=== PATIENT | female | born 1975 | race Caucasian/White ===

== ENCOUNTER 2016-03-23 03:03 | Emergency (ER) | payer MEDICAID | END 2016-03-23 04:45 | disposition home or self-care (01) | LOC: D.ER 03:03 | DX: S00.83XA Contusion of other part of head, initial encounter (principal); S10.93XA Contusion of unspecified part of neck, initial encounter; Y04.2XXA Assault by strike against or bumped into by another person, initial encounter; Y93.89 Activity, other specified; Y92.019 Unspecified place in single-family (private) house as the place of occurrence of the external cause ==

== ENCOUNTER 2016-03-29 23:49 | Emergency (ER) | payer MEDICAID | END 2016-03-30 01:00 | disposition home or self-care (01) | LOC: D.ER 23:49 | DX: S00.83XA Contusion of other part of head, initial encounter (principal); S80.11XA Contusion of right lower leg, initial encounter; S30.0XXA Contusion of lower back and pelvis, initial encounter; S30.1XXA Contusion of abdominal wall, initial encounter; Y04.2XXA Assault by strike against or bumped into by another person, initial encounter; Y93.89 Activity, other specified; Y92.89 Other specified places as the place of occurrence of the external cause; G43.909 Migraine, unspecified, not intractable, without status migrainosus; F17.200 Nicotine dependence, unspecified, uncomplicated ==

== ENCOUNTER 2016-05-02 07:41 | Emergency (ER) | payer MEDICAID | END 2016-05-02 09:11 | disposition home or self-care (01) | LOC: D.ER 07:41 | DX: G43.909 Migraine, unspecified, not intractable, without status migrainosus (principal) ==

== ENCOUNTER 2016-10-24 11:39 | Emergency (ER) | payer MEDICAID | END 2016-10-24 13:02 | disposition home or self-care (01) | LOC: D.ER 11:39 | DX: J20.9 Acute bronchitis, unspecified (principal) ==

== ENCOUNTER 2016-12-26 18:36 | Emergency (ER) | payer MEDICAID ==
[2016-12-26 19:04] LABS: BASOPHILS 0.3 % (0-2); EOSINOPHILS 6.6 % (0-7); HEMATOCRIT 35.1 % (36.0-48.0); HEMOGLOBIN 12.5 g/dL (12-16); IMMATURE GRANULOCYTES 0.1 % (0-5); LYMPHOCYTES 43.3 % (15-50); MCH 32.2 pg (26.0-34.0); MCHC 35.6 g/dL (31.0-37.0); MCV 90.5 fL (80.0-100.0); MEAN PLATELET VOLUME 9.1 fL (7.4-10.4); MONOCYTES 7.2 % (2-11); NEUTROPHILS 42.5 % (40-80); PLATELET COUNT 327 10x3/uL (130-400); RBC 3.88 10x6/uL (4.00-5.40); RDW 13.1 % (11.5-14.5); WBC 7.6 10x3/uL (4.8-10.8)
[2016-12-26 19:22] LABS: ALBUMIN 3.4 g/dL (3.4-5.0); ALKALINE PHOSPHATASE 82 U/L (46-116); ALT (SGPT) 22 U/L (10-68); BILIRUBIN - TOTAL 0.15 mg/dL (0.2-1.3); CALC OSMOLALITY 286 mosm/kg (275-300); CALCIUM 8.5 mg/dL (8.5-10.1); CARBON DIOXIDE 23.5 mmol/L (21.0-32.0); CHLORIDE - SERUM 109 mmol/L (98-107); CREATININE - SERUM 0.9 mg/dL (0.6-1.3); GLUCOSE 116 mg/dL (74-106); POTASSIUM - SERUM 4.2 mmol/L (3.5-5.1); PROTEIN - SERUM 6.8 g/dL (6.4-8.2); SODIUM 143 mmol/L (136-145); UREA NITROGEN 15 mg/dL (7-18); eGFR NON AFRICAN AMERICAN 73 mL/min (90-120)
[2016-12-26 19:28] LABS: CKMB 1.6 U/L (0.0-3.6); CREATINE KINASE 118 UL (21-215); TROPONIN-I < 0.017 ng/mL (0.000-0.060)
== END 2016-12-26 21:07 | disposition home or self-care (01) ==
LOC: D.ER 18:36
PROVIDERS: Emergency Medicine
DX: F41.9 Anxiety disorder, unspecified (principal); K21.9 Gastro-esophageal reflux disease without esophagitis

== ENCOUNTER 2017-01-20 15:09 | Emergency (ER) | payer MEDICAID | END 2017-01-20 16:11 | disposition home or self-care (01) | LOC: D.ER 15:09 | DX: T24.001A Burn of unspecified degree of unspecified site of right lower limb, except ankle and foot, initial encounter (principal); X18.XXXA Contact with other hot metals, initial encounter; Y93.89 Activity, other specified; Y92.89 Other specified places as the place of occurrence of the external cause; K21.9 Gastro-esophageal reflux disease without esophagitis ==

== ENCOUNTER 2017-01-24 12:51 | Emergency (ER) | payer MEDICAID | END 2017-01-24 13:37 | disposition home or self-care (01) | LOC: D.ER 12:51 | DX: T24.001D Burn of unspecified degree of unspecified site of right lower limb, except ankle and foot, subsequent encounter (principal); X08.8XXD Exposure to other specified smoke, fire and flames, subsequent encounter; K21.9 Gastro-esophageal reflux disease without esophagitis ==

== ENCOUNTER 2017-03-12 12:45 | Emergency (ER) | payer MEDICAID | END 2017-03-12 14:40 | disposition home or self-care (01) | LOC: D.ER 12:45 | DX: M25.50 Pain in unspecified joint (principal); S29.011A Strain of muscle and tendon of front wall of thorax, initial encounter; X58.XXXA Exposure to other specified factors, initial encounter; Y93.89 Activity, other specified; Y92.89 Other specified places as the place of occurrence of the external cause; M19.91 Primary osteoarthritis, unspecified site; R07.9 Chest pain, unspecified; F17.200 Nicotine dependence, unspecified, uncomplicated ==

== ENCOUNTER 2017-03-22 11:51 | Emergency (ER) | payer MEDICAID | END 2017-03-22 13:42 | disposition home or self-care (01) | LOC: D.ER 11:51 | DX: J06.9 Acute upper respiratory infection, unspecified (principal); K21.9 Gastro-esophageal reflux disease without esophagitis ==

== ENCOUNTER 2017-03-29 19:51 | Emergency (ER) | payer MEDICAID | END 2017-03-29 20:58 | disposition home or self-care (01) | LOC: D.ER 19:51 | DX: J11.1 Influenza due to unidentified influenza virus with other respiratory manifestations (principal) ==

== ENCOUNTER 2017-03-30 09:56 | Emergency (ER) | payer MEDICAID ==
[2017-03-30 11:37] LABS: BASOPHILS 0.4 % (0-2); EOSINOPHILS 8.4 % (0-7); HEMATOCRIT 38.7 % (36.0-48.0); HEMOGLOBIN 13.4 g/dL (12-16); LYMPHOCYTES 34.5 % (15-50); MCH 31.6 pg (26.0-34.0); MCHC 34.6 g/dL (31.0-37.0); MCV 91.3 fL (80.0-100.0); MEAN PLATELET VOLUME 9.2 fL (7.4-10.4); MONOCYTES 6.9 % (2-11); NEUTROPHILS 49.8 % (40-80); PLATELET COUNT 283 10x3/uL (130-400); RBC 4.24 10x6/uL (4.00-5.40); RDW 13.5 % (11.5-14.5); WBC 5.2 10x3/uL (4.8-10.8)
[2017-03-30 11:52] LABS: ALBUMIN 3.5 g/dL (3.4-5.0); ANION GAP 12.4 mmol/L (8-16); BILIRUBIN - TOTAL 0.16 mg/dL (0.2-1.3); CARBON DIOXIDE 27.6 mmol/L (21.0-32.0); CREATININE - SERUM 1.1 mg/dL (0.6-1.3)
== END 2017-03-30 12:48 | disposition home or self-care (01) ==
LOC: D.ER 09:56
PROVIDERS: Physician Assistant
DX: J11.1 Influenza due to unidentified influenza virus with other respiratory manifestations (principal); J20.9 Acute bronchitis, unspecified; R09.89 Other specified symptoms and signs involving the circulatory and respiratory systems; R50.9 Fever, unspecified; M79.1 Myalgia; J02.9 Acute pharyngitis, unspecified; R06.2 Wheezing; F17.200 Nicotine dependence, unspecified, uncomplicated

== ENCOUNTER 2017-03-31 20:56 | Emergency (ER) | payer MEDICAID | END 2017-03-31 22:55 | disposition home or self-care (01) | LOC: D.ER 20:56 | DX: B34.9 Viral infection, unspecified (principal); F17.200 Nicotine dependence, unspecified, uncomplicated ==

== ENCOUNTER 2017-04-15 10:46 | Emergency (ER) | payer MEDICAID | END 2017-04-15 12:44 | disposition home or self-care (01) | LOC: D.ER 10:46 | DX: S93.401A Sprain of unspecified ligament of right ankle, initial encounter (principal); X50.1XXA Overexertion from prolonged static or awkward postures, initial encounter; Y93.9 Activity, unspecified; Y92.019 Unspecified place in single-family (private) house as the place of occurrence of the external cause ==

== ENCOUNTER 2017-09-03 12:55 | Emergency (ER) | payer MEDICAID ==
[~2017-09-03] VITALS: Ht 149.9 cm; Wt 58.2 kg
[2017-09-03 13:07] VITALS: Ht 149.9 cm; Wt 58.2 kg
[2017-09-03] MEDS ORDERED: NEURONTIN 300300 MG PO (13:09)
[2017-09-03] MEDS ORDERED: PRINIVIL20 MG PO (13:10)
[2017-09-03] MEDS ORDERED: ZOCOR20 MG PO (13:10)
[2017-09-03] MEDS ORDERED: TYLENOL W/CODEI1 TAB PO (15:41)
[2017-09-03] MEDS ORDERED: ZOFRAN ODT4 MG/UDTAB PO (15:41)
[2017-09-03 16:10] VITALS: BP 121/76
== END 2017-09-03 16:10 | disposition home or self-care (01) ==
LOC: D.ER 12:55
DX: G43.909 Migraine, unspecified, not intractable, without status migrainosus (principal); R11.0 Nausea; J02.9 Acute pharyngitis, unspecified; I10 Essential (primary) hypertension; K21.9 Gastro-esophageal reflux disease without esophagitis

== ENCOUNTER 2017-09-20 20:56 | Emergency (ER) | payer MEDICAID ==
[~2017-09-20] VITALS: Ht 149.9 cm; Wt 56.2 kg
[~2017-09-20 20:56] MED LIST: NEURONTIN 300300 MG PO; PRINIVIL20 MG PO; TYLENOL W/CODEI1 TAB PO; ZOCOR20 MG PO; ZOFRAN ODT4 MG/UDTAB PO
[2017-09-20 21:28] VITALS: Ht 149.9 cm; Wt 56.2 kg
[2017-09-21] MEDS ORDERED: TORADOL10 MG PO (00:39)
[2017-09-21 00:48] VITALS: BP 102/73
== END 2017-09-21 00:49 | disposition home or self-care (01) ==
LOC: D.ER 20:56
DX: D49.89 Neoplasm of unspecified behavior of other specified sites (principal); I10 Essential (primary) hypertension; F17.200 Nicotine dependence, unspecified, uncomplicated

== ENCOUNTER 2017-09-24 19:36 | Emergency (ER) | payer MEDICAID ==
[~2017-09-24] VITALS: Ht 149.9 cm; Wt 56.4 kg
[~2017-09-24 19:36] MED LIST changes: +TORADOL10 MG PO
[2017-09-24 19:42] VITALS: Ht 149.9 cm; Wt 56.4 kg
[2017-09-24] MEDS ORDERED: ZOFRAN ODT4 MG/UDTAB PO (21:01)
[2017-09-24 21:46] VITALS: BP 111/78
== END 2017-09-24 21:46 | disposition home or self-care (01) ==
LOC: D.ER 19:36
DX: R59.0 Localized enlarged lymph nodes (principal); F41.9 Anxiety disorder, unspecified; I10 Essential (primary) hypertension

== ENCOUNTER 2018-01-19 13:50 | Emergency (ER) | payer MEDICAID ==
[~2018-01-19] VITALS: Ht 149.9 cm; Wt 59.0 kg
[2018-01-19 14:00] VITALS: Ht 149.9 cm; Wt 59.0 kg
[2018-01-19] MEDS ORDERED: SUMATRIPTAN SUC25 MG PO (17:07)
[2018-01-19 17:43] VITALS: BP 128/84
== END 2018-01-19 17:44 | disposition other institution (70) ==
LOC: D.ER 13:50
DX: G43.909 Migraine, unspecified, not intractable, without status migrainosus (principal); I10 Essential (primary) hypertension

== ENCOUNTER 2018-03-04 10:45 | Emergency (ER) | payer MEDICAID ==
[~2018-03-04] VITALS: Ht 149.9 cm; Wt 65.0 kg
[~2018-03-04 10:45] MED LIST changes: +SUMATRIPTAN SUC25 MG PO
[2018-03-04 11:03] VITALS: Ht 149.9 cm; Wt 65.0 kg
[2018-03-04] MEDS ORDERED: VISTARIL50 MG PO (11:05)
[2018-03-04] MEDS ORDERED: TEMAZEPAM30 MG PO (11:06)
[2018-03-04] MEDS ORDERED: PHENERGAN DM SYR5 ML PO (14:13)
[2018-03-04] MEDS ORDERED: VIBRAMYCIN 100100 MG PO (14:14)
[2018-03-04 14:51] VITALS: BP 124/77
== END 2018-03-04 14:51 | disposition home or self-care (01) ==
LOC: D.ER 10:45
DX: J06.9 Acute upper respiratory infection, unspecified (principal); R05 Cough; R11.0 Nausea; R19.7 Diarrhea, unspecified; M79.18 Myalgia, other site; R09.89 Other specified symptoms and signs involving the circulatory and respiratory systems; I10 Essential (primary) hypertension

== ENCOUNTER 2018-05-19 22:53 | Emergency (ER) | payer MEDICAID ==
[2018-03-04 11:03] VITALS: Ht 149.9 cm; Wt 56.4 kg
[~2018-05-19] VITALS: Ht 149.9 cm; Wt 56.4 kg
[~2018-05-19 22:53] MED LIST changes: +PHENERGAN DM SYR5 ML PO; +TEMAZEPAM30 MG PO; +VIBRAMYCIN 100100 MG PO; +VISTARIL50 MG PO
[2018-05-19 23:01] VITALS: BP 132/81
[2018-05-19] MEDS ORDERED: LISINOPRIL20 MG PO (23:03)
== END 2018-05-20 00:26 | disposition home or self-care (01) ==
LOC: D.ER 22:53
DX: R51 Headache (principal)

== ENCOUNTER 2018-06-08 02:13 | Emergency (ER) | payer MEDICAID ==
[~2018-06-08] VITALS: Ht 149.9 cm; Wt 59.1 kg
[~2018-06-08 02:13] MED LIST changes: +LISINOPRIL20 MG PO
[2018-06-08 02:15] VITALS: Ht 149.9 cm; Wt 59.1 kg
[2018-06-08] MEDS ORDERED: TYLENOL W/CODEI1 TAB PO (02:21)
[2018-06-08 04:01] VITALS: BP 128/89
== END 2018-06-08 04:02 | disposition home or self-care (01) ==
LOC: D.ER 02:13
DX: S01.81XA Laceration without foreign body of other part of head, initial encounter (principal); I10 Essential (primary) hypertension; Y04.8XXA Assault by other bodily force, initial encounter

== ENCOUNTER 2018-06-15 09:05 | Emergency (ER) | payer MEDICAID ==
[~2018-06-15] VITALS: Ht 149.9 cm; Wt 65.9 kg
[2018-06-15 09:08] VITALS: Ht 149.9 cm; Wt 65.9 kg
[2018-06-15 09:43] LABS: APPEARANCE CLEAR (CLEAR); BILIRUBIN NEGATIVE (NEGATIVE); COLOR YELLOW (YELLOW); GLUCOSE NEGATIVE (NEGATIVE); KETONE NEGATIVE (NEGATIVE); NITRITE NEGATIVE (NEGATIVE); PROTEIN NEGATIVE (NEGATIVE); UROBILINOGEN NORMAL (NORMAL)
[2018-06-15 09:53] LABS: BASOPHILS 0.3 % (0-2); EOSINOPHILS 3.3 % (0-7); HEMATOCRIT 38.1 % (36.0-48.0); HEMOGLOBIN 13.7 g/dL (12-16); IMMATURE GRANULOCYTES 0.3 % (0-5); LYMPHOCYTES 26.7 % (15-50); MCH 31.7 pg (26.0-34.0); MCV 88.2 fL (80.0-100.0); MEAN PLATELET VOLUME 9.1 fL (7.4-10.4); MONOCYTES 5.6 % (2-11); NEUTROPHILS 63.8 % (40-80); RBC 4.32 10x6/uL (4.00-5.40); RDW 12.6 % (11.5-14.5); WBC 7.7 10x3/uL (4.8-10.8)
[2018-06-15 09:56] LABS: PLATELET COUNT 345 10x3/uL (130-400)
[2018-06-15 09:58] LABS: UDS - AMPHET POSITIVE QUAL (NEGATIVE); UDS - BARB NEGATIVE QUAL (NEGATIVE); UDS - BENZO NEGATIVE QUAL (NEGATIVE); UDS - COCAINE NEGATIVE QUAL (NEGATIVE); UDS - OPIATE NEGATIVE QUAL (NEGATIVE); UDS - PCP NEGATIVE QUAL (NEGATIVE); UDS - THC POSITIVE QUAL (NEGATIVE)
[2018-06-15 10:01] LABS: ALBUMIN 3.8 g/dL (3.4-5.0); ALKALINE PHOSPHATASE 104 U/L (46-116); ALT (SGPT) 23 U/L (10-68); BILIRUBIN - TOTAL 0.21 mg/dL (0.2-1.3); CALC OSMOLALITY 280 mosm/kg (275-300); CALCIUM 9.1 mg/dL (8.5-10.1); CARBON DIOXIDE 27.2 mmol/L (21.0-32.0); CHLORIDE - SERUM 104 mmol/L (98-107); GLUCOSE 93 mg/dL (74-106); POTASSIUM - SERUM 4.5 mmol/L (3.5-5.1); PROTEIN - SERUM 7.8 g/dL (6.4-8.2); SODIUM 139 mmol/L (136-145); UREA NITROGEN 20 mg/dL (7-18); eGFR NON AFRICAN AMERICAN 64 mL/min (90-120)
[2018-06-15 10:08] LABS: CKMB 0.9 U/L (0.0-3.6); CREATINE KINASE 83 UL (21-215); MAGNESIUM - SERUM 1.8 mg/dL (1.8-2.4)
[2018-06-15 10:10] LABS: TROPONIN-I < 0.017 ng/mL (0.000-0.060)
[2018-06-15] MEDS ORDERED: ZOFRAN4 MG PO (10:41)
[2018-06-15 11:19] VITALS: BP 144/79
== END 2018-06-15 11:00 | disposition home or self-care (01) ==
LOC: D.ER 09:05
PROVIDERS: Family Medicine
DX: S06.0X9A Concussion with loss of consciousness of unspecified duration, initial encounter (principal); W18.39XA Other fall on same level, initial encounter; Y93.89 Activity, other specified; Y92.019 Unspecified place in single-family (private) house as the place of occurrence of the external cause; F19.10 Other psychoactive substance abuse, uncomplicated; R55 Syncope and collapse

== ENCOUNTER 2018-07-14 14:13 | Emergency (ER) | payer MEDICAID ==
[~2018-07-14] VITALS: Ht 149.9 cm; Wt 58.2 kg
[~2018-07-14 14:13] MED LIST changes: +ZOFRAN4 MG PO
[2018-07-14 14:37] VITALS: Ht 149.9 cm; Wt 58.2 kg
[2018-07-14] MEDS ORDERED: VOLTAREN75 MG PO (15:29)
[2018-07-14] MEDS ORDERED: PHENERGAN25 M1 PO (15:29)
[2018-07-14 16:08] VITALS: BP 125/76
== END 2018-07-14 16:10 | disposition home or self-care (01) ==
LOC: D.ER 14:13
DX: R11.0 Nausea (principal); R07.0 Pain in throat

== ENCOUNTER 2018-12-20 07:55 | Emergency (ER) | payer MEDICAID ==
[~2018-12-20] VITALS: Ht 149.9 cm; Wt 54.5 kg
[~2018-12-20 07:55] MED LIST changes: +PHENERGAN25 M1 PO; +VOLTAREN75 MG PO
[2018-12-20 08:00] VITALS: Ht 149.9 cm; Wt 54.5 kg
[2018-12-20] MEDS ORDERED: HYDROCODON-ACE1 EAC7 PO (08:15)
[2018-12-20 08:29] VITALS: BP 110/68
== END 2018-12-20 08:29 | disposition home or self-care (01) ==
LOC: D.ER 07:55
DX: C73 Malignant neoplasm of thyroid gland (principal); M25.50 Pain in unspecified joint; I10 Essential (primary) hypertension

== ENCOUNTER 2019-01-03 07:13 | Emergency (ER) | payer MEDICAID ==
[~2019-01-03 07:13] MED LIST changes: +HYDROCODON-ACE1 EAC7 PO
[2019-01-03 07:17] VITALS: Ht 149.9 cm
[2019-01-03] MEDS ORDERED: TEMAZEPAM30 MG PO (07:19)
[2019-01-03 08:02] LABS: BASOPHILS 0.2 % (0-2); EOSINOPHILS 6.7 % (0-7); HEMATOCRIT 38.1 % (36.0-48.0); HEMOGLOBIN 13.2 g/dL (12-16); IMMATURE GRANULOCYTES 0.2 % (0-5); LYMPHOCYTES 34.5 % (15-50); MCH 32.3 pg (26.0-34.0); MCHC 34.6 g/dL (31.0-37.0); MCV 93.2 fL (80.0-100.0); MEAN PLATELET VOLUME 9.3 fL (7.4-10.4); MONOCYTES 8.2 % (2-11); NEUTROPHILS 50.2 % (40-80); PLATELET COUNT 329 10x3/uL (130-400); RBC 4.09 10x6/uL (4.00-5.40); RDW 13.8 % (11.5-14.5)
[2019-01-03 08:06] LABS: CALC OSMOLALITY 277 mosm/kg (275-300); CALCIUM 8.8 mg/dL (8.5-10.1); CARBON DIOXIDE 28.4 mmol/L (21.0-32.0); CHLORIDE - SERUM 105 mmol/L (98-107); CREATININE - SERUM 0.8 mg/dL (0.6-1.3); GLUCOSE 90 mg/dL (74-106); POTASSIUM - SERUM 4.5 mmol/L (3.5-5.1); SODIUM 140 mmol/L (136-145); UREA NITROGEN 10 mg/dL (7-18); eGFR NON AFRICAN AMERICAN 82 mL/min (90-120)
[2019-01-03 08:11] LABS: ALBUMIN 3.5 g/dL (3.4-5.0); ALKALINE PHOSPHATASE 108 U/L (46-116); ALT (SGPT) 25 U/L (10-68); BILIRUBIN - TOTAL 0.23 mg/dL (0.2-1.3); CREATINE KINASE 82 UL (21-215); PROTEIN - SERUM 7.4 g/dL (6.4-8.2)
[2019-01-03 08:14] LABS: APPEARANCE CLEAR (CLEAR); BILIRUBIN NEGATIVE (NEGATIVE); COLOR STRAW (YELLOW); GLUCOSE NEGATIVE (NEGATIVE); KETONE NEGATIVE (NEGATIVE); NITRITE NEGATIVE (NEGATIVE); PROTEIN NEGATIVE (NEGATIVE); SPECIFIC GRAVITY 1.005 (1.005-1.020); UROBILINOGEN NORMAL (NORMAL)
[2019-01-03] MEDS ORDERED: NAPROSYN500 MG PO (09:04)
[2019-01-03 09:17] VITALS: BP 103/61
== END 2019-01-03 09:18 | disposition home or self-care (01) ==
LOC: D.ER 07:13
PROVIDERS: Family Medicine
DX: G89.3 Neoplasm related pain (acute) (chronic) (principal); I10 Essential (primary) hypertension; M25.50 Pain in unspecified joint; C73 Malignant neoplasm of thyroid gland

== ENCOUNTER 2019-03-07 13:41 | Emergency (ER) | payer MEDICAID ==
[~2019-03-07] VITALS: Ht 149.9 cm; Wt 59.1 kg
[~2019-03-07 13:41] MED LIST changes: +NAPROSYN500 MG PO
[2019-03-07 13:44] VITALS: Ht 149.9 cm; Wt 59.1 kg
[2019-03-07] MEDS ORDERED: TYLENOL ARTHRI650 MG PO (14:10)
--- NOTE | 2019-03-07 14:35 | NUR ---
According to the suicide assessment the patient rates low for suicide and she does not need 1:1 observation, but will provide the patient a suicide resource flyer.
[2019-03-07 14:44] VITALS: BP 114/50
== END 2019-03-07 14:57 | disposition home or self-care (01) ==
LOC: D.ER 13:41
DX: J02.9 Acute pharyngitis, unspecified (principal); C73 Malignant neoplasm of thyroid gland; E07.9 Disorder of thyroid, unspecified; I10 Essential (primary) hypertension

== ENCOUNTER 2019-04-20 17:48 | Emergency (ER) | payer MEDICAID ==
[~2019-04-20] VITALS: Ht 149.9 cm; Wt 63.6 kg
[~2019-04-20 17:48] MED LIST changes: +TYLENOL ARTHRI650 MG PO
[2019-04-20 17:57] VITALS: BP 119/83; Ht 149.9 cm; Wt 63.6 kg
[2019-04-20] MEDS ORDERED: EC-NAPROSYN500 MG PO (20:56)
== END 2019-04-20 19:04 | disposition left against medical advice (07) ==
LOC: D.ER 17:48
DX: M54.5 Low back pain (principal)

== ENCOUNTER 2019-04-20 20:18 | Emergency (ER) | payer MEDICAID ==
[~2019-04-20] VITALS: Ht 149.9 cm; Wt 68.2 kg
[2019-04-20 20:24] VITALS: Ht 149.9 cm; Wt 68.2 kg
[2019-04-20] MEDS ORDERED: EC-NAPROSYN500 MG PO (20:56)
[2019-04-20 21:25] VITALS: BP 148/89
== END 2019-04-20 21:22 | disposition home or self-care (01) ==
LOC: D.ER 20:18
DX: M54.5 Low back pain (principal); M54.9 Dorsalgia, unspecified; I10 Essential (primary) hypertension

== ENCOUNTER 2019-04-24 19:58 | Emergency (ER) | payer MEDICAID ==
[~2019-04-24] VITALS: Ht 149.9 cm; Wt 68.2 kg
[~2019-04-24 19:58] MED LIST changes: +EC-NAPROSYN500 MG PO
[2019-04-24 20:29] VITALS: Ht 149.9 cm; Wt 68.2 kg
[2019-04-24] MEDS ORDERED: MOBIC7.5 MG PO (20:30)
[2019-04-24] MEDS ORDERED: TEMAZEPAM30 MG PO (20:31)
[2019-04-24 20:43] LABS: BASOPHILS 0.3 % (0-2); EOSINOPHILS 5.3 % (0-7); HEMOGLOBIN 12.2 g/dL (12-16); IMMATURE GRANULOCYTES 0.5 % (0-5); LYMPHOCYTES 40.4 % (15-50); MCH 32.2 pg (26.0-34.0); MCHC 34.9 g/dL (31.0-37.0); MCV 92.3 fL (80.0-100.0); MEAN PLATELET VOLUME 8.6 fL (7.4-10.4); MONOCYTES 7.3 % (2-11); NEUTROPHILS 46.2 % (40-80); PLATELET COUNT 331 10x3/uL (130-400); RBC 3.79 10x6/uL (4.00-5.40); RDW 13.5 % (11.5-14.5); WBC 10.9 10x3/uL (4.8-10.8)
[2019-04-24 20:51] LABS: CALC OSMOLALITY 289 mosm/kg (275-300); CALCIUM 9.3 mg/dL (8.5-10.1); CARBON DIOXIDE 30.7 mmol/L (21.0-32.0); CHLORIDE - SERUM 107 mmol/L (98-107); GLUCOSE 109 mg/dL (74-106); POTASSIUM - SERUM 4.5 mmol/L (3.5-5.1); SODIUM 144 mmol/L (136-145); UREA NITROGEN 18 mg/dL (7-18); eGFR NON AFRICAN AMERICAN 64 mL/min (90-120)
[2019-04-24 21:00] LABS: ALBUMIN 3.4 g/dL (3.4-5.0); ALKALINE PHOSPHATASE 89 U/L (30-120); ALT (SGPT) 26 U/L (10-68); BILIRUBIN - TOTAL 0.19 mg/dL (0.2-1.3); LIPASE 143 U/L (73-393); PROTEIN - SERUM 6.9 g/dL (6.4-8.2)
[2019-04-24 21:01] LABS: TROPONIN-I < 0.017 ng/mL (0.000-0.060)
[2019-04-24 21:29] LABS: BILIRUBIN NEGATIVE (NEGATIVE); GLUCOSE NEGATIVE (NEGATIVE); KETONE NEGATIVE (NEGATIVE); NITRITE NEGATIVE (NEGATIVE); UROBILINOGEN NORMAL (NORMAL)
[2019-04-24 22:00] VITALS: BP 148/106
== END 2019-04-24 22:00 | disposition home or self-care (01) ==
LOC: D.ER 19:58
PROVIDERS: Emergency Medicine
DX: R10.13 Epigastric pain (principal); I10 Essential (primary) hypertension; M54.9 Dorsalgia, unspecified

== ENCOUNTER 2019-07-19 19:59 | Emergency (ER) | payer MEDICAID ==
[~2019-07-19] VITALS: Ht 149.9 cm; Wt 59.1 kg
[~2019-07-19 19:59] MED LIST changes: +MOBIC7.5 MG PO
[2019-07-19 20:02] VITALS: Ht 149.9 cm; Wt 59.1 kg
[2019-07-19 21:21] LABS: BILIRUBIN NEGATIVE (NEGATIVE); GLUCOSE NEGATIVE (NEGATIVE); KETONE NEGATIVE (NEGATIVE); NITRITE NEGATIVE (NEGATIVE); SPECIFIC GRAVITY 1.015 (1.005-1.020); UROBILINOGEN NORMAL (NORMAL)
[2019-07-19 21:25] LABS: ANION GAP 9.5 mmol/L (8-16); BASOPHILS 0.3 % (0-2); CALCIUM 8.8 mg/dL (8.5-10.1); CARBON DIOXIDE 30.5 mmol/L (21.0-32.0); CREATININE - SERUM 0.9 mg/dL (0.6-1.3); EOSINOPHILS 5.7 % (0-7); HEMATOCRIT 38.9 % (36.0-48.0); HEMOGLOBIN 13.8 g/dL (12-16); LYMPHOCYTES 49.2 % (15-50); MCH 31.9 pg (26.0-34.0); MCHC 35.5 g/dL (31.0-37.0); MCV 89.8 fL (80.0-100.0); MEAN PLATELET VOLUME 8.8 fL (7.4-10.4); MONOCYTES 6.5 % (2-11); NEUTROPHILS 38.3 % (40-80); PLATELET COUNT 370 10x3/uL (130-400); RBC 4.33 10x6/uL (4.00-5.40); RDW 12.9 % (11.5-14.5)
[2019-07-19 21:31] LABS: ALBUMIN 3.9 g/dL (3.4-5.0); BILIRUBIN - TOTAL 0.26 mg/dL (0.2-1.3); PROTEIN - SERUM 7.5 g/dL (6.4-8.2)
[2019-07-19] MEDS ORDERED: ZOFRAN ODT4 MG/UDTAB PO (21:45)
[2019-07-19] MEDS ORDERED: TALWIN NX1 TAB PO (21:45)
[2019-07-19] MEDS ORDERED: LEVSIN/ANASP0.125 MG PO (21:45)
[2019-07-19] MEDS ORDERED: BACLOFEN20 M1 PO (21:51)
[2019-07-19 22:23] VITALS: BP 118/80
== END 2019-07-19 22:23 | disposition home or self-care (01) ==
LOC: D.ER 19:59
PROVIDERS: Family Medicine
DX: M79.605 Pain in left leg (principal); M79.604 Pain in right leg; J02.9 Acute pharyngitis, unspecified; M79.18 Myalgia, other site; I10 Essential (primary) hypertension; Z85.01 Personal history of malignant neoplasm of esophagus; R11.2 Nausea with vomiting, unspecified

== ENCOUNTER 2019-10-16 12:28 | Inpatient (IN) | payer MEDICAID ==
[~2019-10-16] VITALS: Ht 149.9 cm; Wt 65.9 kg
[~2019-10-16 12:28] MED LIST changes: +BACLOFEN20 M1 PO; +LEVSIN/ANASP0.125 MG PO; +TALWIN NX1 TAB PO
[2019-10-16 13:01] LABS: BILIRUBIN NEGATIVE (NEGATIVE); KETONE NEGATIVE (NEGATIVE); NITRITE NEGATIVE (NEGATIVE); UROBILINOGEN NORMAL (NORMAL)
[2019-10-16 13:25] LABS: BASOPHILS 0.2 % (0-2); EOSINOPHILS 5.6 % (0-7); HEMATOCRIT 30.6 % (36.0-48.0); HEMOGLOBIN 10.2 g/dL (12-16); LYMPHOCYTES 38.4 % (15-50); MCH 30.5 pg (26.0-34.0); MCHC 33.3 g/dL (31.0-37.0); MCV 91.6 fL (80.0-100.0); MEAN PLATELET VOLUME 8.4 fL (7.4-10.4); MONOCYTES 4.1 % (2-11); NEUTROPHILS 51.7 % (40-80); RBC 3.34 10x6/uL (4.00-5.40); RDW 13.1 % (11.5-14.5); WBC 6.3 10x3/uL (4.8-10.8)
[2019-10-16 13:28] LABS: PLATELET COUNT 508 10x3/uL (130-400)
[2019-10-16 13:40] LABS: CALC OSMOLALITY 279 mosm/kg (275-300); CALCIUM 8.9 mg/dL (8.5-10.1); CARBON DIOXIDE 25.4 mmol/L (21.0-32.0); CHLORIDE - SERUM 105 mmol/L (98-107); CREATININE - SERUM 0.9 mg/dL (0.6-1.3); GLUCOSE 99 mg/dL (74-106); POTASSIUM - SERUM 4.6 mmol/L (3.5-5.1); SODIUM 139 mmol/L (136-145); UREA NITROGEN 19 mg/dL (7-18); eGFR NON AFRICAN AMERICAN 72 mL/min (90-120)
[2019-10-16 13:49] LABS: ALKALINE PHOSPHATASE 97 U/L (30-120); ALT (SGPT) 21 U/L (10-68); AMYLASE - SERUM 93 U/L (25-115); BILIRUBIN - TOTAL 0.18 mg/dL (0.2-1.3); LIPASE 477 U/L (73-393); PROTEIN - SERUM 7.9 g/dL (6.4-8.2)
[2019-10-16 13:50] LABS: TROPONIN-I < 0.017 ng/mL (0.000-0.060)
--- NOTE | 2019-10-16 17:46 | NUR ---
PT ARRIVED TO ROOM 2138 VIA WHEELCHAIR. DENIES NEEDS OR PAIN AT THIS TIME. CALL LIGHT WITHIN REACH. BED IN LOWEST POSITION. ORIENTED TO ROOM. WILL CONTINUE TO MONITOR.
--- NOTE | 2019-10-16 19:30 | NUR ---
PT IN BED, AAO X 3, RESP EVEN AND UNLABORED. NO DISTRESS NOTED, CL IN REACH, SR UP X 2
[2019-10-16 19:32] VITALS: BP 189/78; Ht 149.9 cm; Wt 65.9 kg
[2019-10-16 20:00] VITALS: BP 145/82
[2019-10-17] VITALS: BP 175/91
--- NOTE | 2019-10-17 03:44 | NUR ---
I have reviewed this patient and I concur with the Shift Assessment completed by the Licensed Practical Nurse today this shift.
[2019-10-17 04:00] VITALS: BP 115/79
[2019-10-17 07:00] VITALS: BP 129/77
[2019-10-17 07:08] LABS: HEMATOCRIT 29.3 % (36.0-48.0); HEMOGLOBIN 9.8 g/dL (12-16); MCH 30.5 pg (26.0-34.0); MCHC 33.4 g/dL (31.0-37.0); MCV 91.3 fL (80.0-100.0); MEAN PLATELET VOLUME 8.6 fL (7.4-10.4); PLATELET COUNT 497 10x3/uL (130-400); RBC 3.21 10x6/uL (4.00-5.40); RDW 13.3 % (11.5-14.5); WBC 6.3 10x3/uL (4.8-10.8)
[2019-10-17 07:34] LABS: EOSINOPHILS 4 % (0-7); LYMPHOCYTES 60 % (15-50); MONOCYTES 1 % (2-11); NEUTROPHILS 35 % (40-80); PLATELET ESTIMATE INCREASED
[2019-10-17 07:55] LABS: ALBUMIN 3.6 g/dL (3.4-5.0); ANION GAP 13.8 mmol/L (8-16); BILIRUBIN - TOTAL 0.36 mg/dL (0.2-1.3); CHOL - HDL RATIO 3.3 ratio (2.3-4.1); CREATININE - SERUM 0.9 mg/dL (0.6-1.3); LDL-HDL RATIO 2.1 ratio (1.5-3.5); PROTEIN - SERUM 6.9 g/dL (6.4-8.2)
[2019-10-17 07:57] LABS: POTASSIUM - SERUM 3.8 mmol/L (3.5-5.1)
--- NOTE | 2019-10-17 08:04 | NUR ---
PT SITTING UP IN BED, RR EVEN AND UNLABORED ON RA. RECIEVED SHOWER SET UP AND IV COVERED PER REQUEST. CALL LIGHT WITHIN REACH. DENIES FURTHER NEEDS OR PAIN AT THIS TIME. WILL CONTINUE TO MONITOR.
[2019-10-17 11:00] VITALS: BP 124/62
[2019-10-17 11:37] LABS: T4 THYROXIN - FREE 1.03 ng/dL (0.76-1.46); THYROID STIMULATING HORMONE 5.98 uIU/mL (0.36-3.74)
[2019-10-17 15:00] VITALS: BP 101/73
[2019-10-17 21:16] VITALS: BP 98/60
--- NOTE | 2019-10-17 21:54 | NUR ---
PT C/O ABD PAIN OF 8, ON A SCALE OF 0-10, ALSO REQUESTING PRN RESTORIL 15 MG FOR SLEEP. BP 98/60, EXPLAINED TO PT BP WOULD NEED TO COME UP TO AT LEAST 100 SYSTOLIC BEFORE ADMINISTERING PRN SEDATING MEDS. REFUSED SCHEDULED GABAPENTIN, STATING "I DON'T EVEN WANT THAT, I WANT MY PAIN AND SLEEP MEDS." BED IN LOWEST, SRX1, CALL LIGHT WITHIN REACH. FRIEND AT BEDSIDE. WILL CTM.
[2019-10-18 00:30] VITALS: BP 135/80
[2019-10-18 04:30] VITALS: BP 119/70
--- NOTE | 2019-10-18 05:52 | NUR ---
PT C/O PAIN AT PIV SITE TO RIGHT FOREARM. DC'D, CATHETER TIP INTACT, TOLERATED WELL. PIV RESITED TO LEFT HAND 22 GAUGE, ATTEMPTS X2, TOLERATED WELL, INFUSING IVF WITHOUT ISSUE. C/O ABD PAIN OF 8, ON A SCALE OF 0-10. ADMINISTERED PRN MORPHINE AND ZOFRAN, PER ORDER. WILL CTM.
[2019-10-18 07:54] LABS: BASOPHILS 0.3 % (0-2); EOSINOPHILS 6.9 % (0-7); HEMATOCRIT 26.8 % (36.0-48.0); HEMOGLOBIN 8.8 g/dL (12-16); IMMATURE GRANULOCYTES 0.2 % (0-5); LYMPHOCYTES 36.6 % (15-50); MCH 29.7 pg (26.0-34.0); MCHC 32.8 g/dL (31.0-37.0); MCV 90.5 fL (80.0-100.0); MEAN PLATELET VOLUME 8.3 fL (7.4-10.4); MONOCYTES 7.1 % (2-11); NEUTROPHILS 48.9 % (40-80); PLATELET COUNT 410 10x3/uL (130-400); RBC 2.96 10x6/uL (4.00-5.40); RDW 13.4 % (11.5-14.5); WBC 5.9 10x3/uL (4.8-10.8)
[2019-10-18 08:05] LABS: ANION GAP 9.7 mmol/L (8-16); CARBON DIOXIDE 24.4 mmol/L (21.0-32.0); CREATININE - SERUM 0.9 mg/dL (0.6-1.3); POTASSIUM - SERUM 4.1 mmol/L (3.5-5.1)
[2019-10-18 08:07] VITALS: BP 121/76
[2019-10-18 08:22] LABS: BILIRUBIN - TOTAL 0.08 mg/dL (0.2-1.3)
[2019-10-18 11:00] VITALS: BP 145/86
--- NOTE | 2019-10-18 11:22 | NUR ---
I CALLED WENDI AYALA TO SEE IF PATIENT CAN BE DISCHARGED SINCE LABS ARE BETTER. HE SAID HE WOULD LOOK AT IT AND LET US KNOW.
--- NOTE | 2019-10-18 13:00 | NUR ---
[facility] REMOVED AND DISCHARGE PAPERS DISCUSSED WITH PATIENT. TO CAR VIA WHEELCHAIR FOR DISCHARGE HOME.
== END 2019-10-18 13:28 | disposition home or self-care (01) | DRG 440 ==
LOC: D.ER 12:28 → D.M2 15:39
PROVIDERS: Family Medicine; ADMIT Emergency Medicine; ATTEND Emergency Medicine
DX: K85.90 Acute pancreatitis without necrosis or infection, unspecified (principal); E78.49 Other hyperlipidemia; I10 Essential (primary) hypertension; K21.9 Gastro-esophageal reflux disease without esophagitis; E04.1 Nontoxic single thyroid nodule

== ENCOUNTER 2020-04-29 04:07 | Emergency (ER) | payer MEDICAID ==
[~2020-04-29] VITALS: Ht 149.9 cm; Wt 59.1 kg
[~2020-04-29 04:07] MED LIST changes: +CARAFATE1 G/10 ML PO; +STERAPRED DS 1010 MG PO; +ZPAK PO
[2020-04-29 04:22] VITALS: BP 103/61; Ht 149.9 cm; Wt 59.1 kg
== END 2020-04-29 05:03 | disposition home or self-care (01) ==
LOC: D.ER 04:07
DX: M54.5 Low back pain (principal); I10 Essential (primary) hypertension; K21.9 Gastro-esophageal reflux disease without esophagitis

== ENCOUNTER 2020-06-01 19:45 | Emergency (ER) | payer MEDICAID ==
[~2020-06-01] VITALS: Ht 149.9 cm; Wt 59.1 kg
[2020-06-01 19:48] VITALS: BP 111/83; Ht 149.9 cm; Wt 59.1 kg
== END 2020-06-01 20:58 | disposition left against medical advice (07) ==
LOC: D.ER 19:45
DX: M54.9 Dorsalgia, unspecified (principal)

== ENCOUNTER → 2020-06-28 10:22 | Outpatient (CLI) | payer MEDICAID ==
[2020-06-01 19:48] VITALS: BMI 26.3
== END | disposition home or self-care (01) ==
LOC: D.CT 06-26 11:00
PROVIDERS: ATTEND Emergency Medicine
DX: I88.8 Other nonspecific lymphadenitis (principal)

== ENCOUNTER → 2020-07-11 08:25 | Outpatient (CLI) | payer MEDICAID ==
[2020-06-01 19:48] VITALS: BMI 26.3
== END | disposition home or self-care (01) ==
LOC: D.CT 08:25
PROVIDERS: ATTEND Emergency Medicine
DX: D15.0 Benign neoplasm of thymus (principal)